=== PATIENT | male | born 1940 | race Caucasian/White ===

== ENCOUNTER 2018-03-26 14:43 | Inpatient (IN) | payer OTHER ==
[~2018-03-26] VITALS: Ht 190.5 cm; Wt 127.2 kg
[2018-03-26] MEDS ORDERED: SODIUM CHLORIDE FLUSH 10ML SYR IVF ONE (15:00)
[2018-03-26 15:16] LABS: BASOPHILS # (AUTO) 0.04 x10^3/uL (0-0.1); BASOPHILS % (AUTO) 0 % (0-1); EOSINOPHILS # (AUTO) 0.24 x10^3/uL (0-0.4); EOSINOPHILS % (AUTO) 2 % (1-7); LYMPHOCYTES # (AUTO) 1.62 x10^3/uL (1-3.4); LYMPHOCYTES % (AUTO) 15 % (22-44); MD NO; MEAN CORPUSCULAR HEMOGLOBIN 23.4 pg (27.5-34.5); MEAN CORPUSCULAR HGB CONC 31.4 g/dL (33.2-36.2); MEAN CORPUSCULAR VOLUME 74.3 fL (81-97); MEAN PLATELET VOLUME 8.9 fL (7.4-10.4); MONOCYTES # (AUTO) 0.96 x10^3/uL (0.2-0.8); MONOCYTES % (AUTO) 9 % (2-9); NEUTROPHILS # (AUTO) 7.68 x10^3/uL (1.8-6.8); NEUTROPHILS % (AUTO) 73 % (42-75); PLATELET COUNT 195 x10^3/uL (130-400); RED BLOOD COUNT 7.05 x10^6/uL (4.38-5.82); RED CELL DISTRIBUTION WIDTH 21.1 % (9.4-14.8)
[2018-03-26 15:21] LABS: INTERNATIONAL NORMALIZED RATIO 1.16 (0.93-1.1); PROTHROMBIN TIME 11.9 Seconds (9.6-11.5)
[2018-03-26 15:23] LABS: ALANINE AMINOTRANSFERASE 33 U/L (12-78); ALBUMIN 3.7 g/dL (3.4-5.0); ANION GAP 7 mmol/L (5-15); CALCIUM 8.6 mg/dL (8.5-10.1); CHLORIDE 102 mmol/L (98-107); CREATININE 0.97 mg/dL (0.7-1.3)
[2018-03-26 15:25] LABS: ALKALINE PHOSPHATASE 76 U/L (45-117); TOTAL PROTEIN 7.5 g/dL (6.4-8.2)
[2018-03-26] MEDS ORDERED: ROSU5TAB PO (15:54)
[2018-03-26] MEDS ORDERED: UMEC1DIS INH (15:54)
[2018-03-26] MEDS ORDERED: LATA7.5D EACHEYE (15:54)
[2018-03-26] MEDS ORDERED: TIMO1DRO2 EACHEYE (15:54)
[2018-03-26] MEDS ORDERED: LISI-167 PO (15:54)
[2018-03-26] MEDS ORDERED: METF500T5 PO (15:54)
[2018-03-26] MEDS ORDERED: DORZ10DR27 EACHEYE (15:54)
[2018-03-26] MEDS ORDERED: ONDANSETRON 2MG/ML, 2ML IVPush PRN (16:30)
[2018-03-26] MEDS ORDERED: ACETAMINOPHEN 650 MG/20.3 ML UDC PO PRN (16:30)
[2018-03-26 17:04] LABS: TROPONIN I 0.029 ng/mL (0.000-0.045)
[2018-03-26] MEDS: INSULIN LISPRO 100 UNITS/ML, PEN SQ-INSULIN SCH ×2 (17:39→21:31)
[2018-03-26] MEDS: ATORVASTATIN 80 MG TABLET PO SCH (21:31)
[2018-03-26] MEDS: TIMOLOL MALEATE EACHEYE SCH (21:32)
[2018-03-27 04:00] VITALS: BP 135/61
[2018-03-27 04:19] VITALS: BP 186/99
[2018-03-27 04:44] LABS: BASOPHILS # (AUTO) 0.06 x10^3/uL (0-0.1); BASOPHILS % (AUTO) 1 % (0-1); EOSINOPHILS # (AUTO) 0.31 x10^3/uL (0-0.4); EOSINOPHILS % (AUTO) 3 % (1-7); LYMPHOCYTES # (AUTO) 1.71 x10^3/uL (1-3.4); LYMPHOCYTES % (AUTO) 15 % (22-44); MD NO; MEAN CORPUSCULAR HEMOGLOBIN 23.9 pg (27.5-34.5); MEAN CORPUSCULAR HGB CONC 32.1 g/dL (33.2-36.2); MEAN CORPUSCULAR VOLUME 74.2 fL (81-97); MEAN PLATELET VOLUME 8.7 fL (7.4-10.4); MONOCYTES # (AUTO) 1.21 x10^3/uL (0.2-0.8); MONOCYTES % (AUTO) 10 % (2-9); NEUTROPHILS # (AUTO) 8.51 x10^3/uL (1.8-6.8); NEUTROPHILS % (AUTO) 72 % (42-75); PLATELET COUNT 187 x10^3/uL (130-400); RED BLOOD COUNT 6.88 x10^6/uL (4.38-5.82); RED CELL DISTRIBUTION WIDTH 20.8 % (9.4-14.8)
[2018-03-27 04:53] LABS: CHLORIDE 102 mmol/L (98-107)
[2018-03-27 05:04] LABS: ALANINE AMINOTRANSFERASE 28 U/L (12-78); ALBUMIN 3.5 g/dL (3.4-5.0); ALKALINE PHOSPHATASE 73 U/L (45-117); ANION GAP 7 mmol/L (5-15); BILIRUBIN,TOTAL 1.2 mg/dL (0.2-1.0); CALCIUM 8.6 mg/dL (8.5-10.1); CHOL/HDL RATIO 4.3; CHOLESTEROL, TOTAL 143 mg/dL (140-239); CREATININE 0.89 mg/dL (0.7-1.3); HDL CHOL % 23 % (26-37); HDL CHOLESTEROL (DIRECT) 33 mg/dL (40-60); LDL CHOLESTEROL,CALCULATED 94 mg/dL (54-169); LDL/HDL RATIO 2.8 (0.5-3.0); TOTAL PROTEIN 6.9 g/dL (6.4-8.2); TRIGLYCERIDES 82 mg/dL (50-200); VLDL CHOLESTEROL 16 mg/dL (0-25)
[2018-03-27] MEDS: INSULIN LISPRO 100 UNITS/ML, PEN SQ-INSULIN SCH ×4 (07:52→20:36)
[2018-03-27] MEDS: TIMOLOL MALEATE EACHEYE SCH ×2 (09:00→20:37)
[2018-03-27 17:51] VITALS: BP 141/90
[2018-03-27 18:26] VITALS: BP 165/80
[2018-03-27] MEDS: ATORVASTATIN 80 MG TABLET PO SCH (20:36)
[2018-03-28 03:27] VITALS: BP 150/76
[2018-03-28 05:28] LABS: BASOPHILS # (AUTO) 0.07 x10^3/uL (0-0.1); BASOPHILS % (AUTO) 1 % (0-1); EOSINOPHILS # (AUTO) 0.44 x10^3/uL (0-0.4); EOSINOPHILS % (AUTO) 4 % (1-7); LYMPHOCYTES # (AUTO) 1.73 x10^3/uL (1-3.4); LYMPHOCYTES % (AUTO) 16 % (22-44); MD NO; MEAN CORPUSCULAR HEMOGLOBIN 23.7 pg (27.5-34.5); MEAN CORPUSCULAR HGB CONC 31.9 g/dL (33.2-36.2); MEAN CORPUSCULAR VOLUME 74.3 fL (81-97); MEAN PLATELET VOLUME 9.1 fL (7.4-10.4); MONOCYTES # (AUTO) 1.15 x10^3/uL (0.2-0.8); MONOCYTES % (AUTO) 11 % (2-9); NEUTROPHILS # (AUTO) 7.42 x10^3/uL (1.8-6.8); NEUTROPHILS % (AUTO) 69 % (42-75); PLATELET COUNT 196 x10^3/uL (130-400); RED BLOOD COUNT 6.84 x10^6/uL (4.38-5.82); RED CELL DISTRIBUTION WIDTH 20.7 % (9.4-14.8)
[2018-03-28 05:41] LABS: ANION GAP 7 mmol/L (5-15); CALCIUM 8.3 mg/dL (8.5-10.1); CHLORIDE 101 mmol/L (98-107)
[2018-03-28 05:44] LABS: CREATININE 0.88 mg/dL (0.7-1.3)
[2018-03-28 06:52] VITALS: BP 138/79
[2018-03-28 08:09] VITALS: BP 143/98
[2018-03-28] MEDS: INSULIN LISPRO 100 UNITS/ML, PEN SQ-INSULIN SCH ×2 (08:30→12:32)
[2018-03-28] MEDS: TIMOLOL MALEATE EACHEYE SCH (09:30)
[2018-03-28 12:22] VITALS: BP 138/79
[2018-03-28] MEDS ORDERED: ASPIRIN 81 MG TABLET EC PO SCH (12:30)
[2018-03-28] MEDS ORDERED: ASPI-621 PO (13:19)
[2018-03-28] MEDS ORDERED: ATOR-2 PO (13:19)
[2018-03-28] MEDS ORDERED: LATANOPROST OPHTH 0.005%, 2.5ML EACHEYE SCH (21:00)
== END 2018-03-28 15:36 | disposition home or self-care (01) | DRG 304 ==
LOC: ED 15:21 → EDIP 15:22 → ED 16:06 → CCU 16:25 → 4EST 03-27 17:53 → DCLOUNGE 03-28 15:36
PROVIDERS: ADMIT Hospitalist; ATTEND Hospitalist
DX: I16.1 Hypertensive emergency (principal); G93.40 Encephalopathy, unspecified; R47.01 Aphasia; E11.9 Type 2 diabetes mellitus without complications; E78.5 Hyperlipidemia, unspecified; G47.33 Obstructive sleep apnea (adult) (pediatric); H35.30 Unspecified macular degeneration; I10 Essential (primary) hypertension; I83.90 Asymptomatic varicose veins of unspecified lower extremity; J44.9 Chronic obstructive pulmonary disease, unspecified; Z86.73 Personal history of transient ischemic attack (TIA), and cerebral infarction without residual deficits
CPT/HCPCS: 36415; 70551; 80048; 80053; 80061; 82962; 83735; 84100; 84484; 85025; 85610; 85730; 87081; 93005; 93306; 93970; 99291; 92523-GN; J1815